=== PATIENT | male | born 1955 | race Caucasian/White ===

== ENCOUNTER 2024-03-02 06:36 | Observation (INO) ==
[~2024-03-02 06:36] MED LIST: Metoclopramide 5 MG/ML VIAL (10 mg) IV PRN; NS 0.45% 1000 ml BAG 1,000 ML IV SCH; Naloxone 0.4 mg VIAL 0.4 mg/ml 1 ml VIAL IV PRN; fentaNYL 100 mcg/2 ml 50 MCG/ML VIAL IV PRN
[2024-03-02] MEDS ORDERED: Scopolamine 1 mg/72hr PATCH ONE (06:52)
[2024-03-02] MEDS ORDERED: ceFAZolin 2 GM PREMIX 2 GM/50 ML BAG ONE (06:53)
[2024-03-02] MEDS ORDERED: Tranexamic Acid 1 GM/100ML BAG 2,000 MG/200 ML BAG IV ONE (06:53)
[2024-03-02 07:15] LABS: Rapid COVID-19 Molecular Undetected (Undetected)
[2024-03-02] MEDS: Buffered Lidocaine 1% SYRIN 1 ml INTRADERM ONE (07:22)
[2024-03-02] MEDS: Scopolamine 1 mg/72hr PATCH TRANSDERM ONE (07:23)
[2024-03-02] MEDS: Lactated Ringers 1000 ml BAG 1,000 ML IV SCH ×2 (07:23→17:39)
[2024-03-02 07:41] LABS: Activated Partial Thrombo Time 27.4 seconds (26.0-38.0); INR 1.05 (0.85-1.14)
[2024-03-02] MEDS ORDERED: ROPIVACAINE 5 MG/ML 30 ML BTL (0.5%) ONE (09:13)
[2024-03-02] MEDS ORDERED: Lidocaine 2% PF 5 ML VIAL ONE (09:14)
[2024-03-02] MEDS ORDERED: Midazolam 2 mg/2 ml VIAL 1 mg/ml 2 ml VIAL (2 mg) ONE ×2 (09:15→11:09)
[2024-03-02] MEDS ORDERED: Vancomycin 1,000 MG VIAL ONE ×2 (10:05→10:06)
[2024-03-02] MEDS ORDERED: Lidocaine 1% w EPI 1:200,000 SDV 30 ML VIAL ONE (10:05)
[2024-03-02] MEDS ORDERED: Bupivacaine 0.5% SDV PF 30ML VIAL ONE (10:37)
[2024-03-02] MEDS ORDERED: Propofol 10 MG/ML 20 ML BTL ONE ×2 (10:55→13:09)
[2024-03-02] MEDS ORDERED: Ondansetron 4 mg VIAL 2 MG/ML 2 ml VIAL IV PRN (12:00)
[2024-03-02] MEDS ORDERED: Lactulose 30 ml UDC PO PRN (12:00)
[2024-03-02] MEDS ORDERED: Magnesium Hydroxide LIQ 30 ML UDC PO PRN (12:00)
[2024-03-02] MEDS ORDERED: Morphine 2 MG/ML SYRINGE IV PRN (12:00)
[2024-03-02] MEDS ORDERED: Calcium Carb (TUMS) 500 mg CHEW TAB PO PRN (12:00)
[2024-03-02] MEDS ORDERED: Ondansetron ODT 4 mg TAB 4 MG TAB PO PRN (12:00)
[2024-03-02] MEDS ORDERED: Dexamethasone IV 4 MG/ML VIAL 1 ml VIAL ONE (12:49)
[2024-03-02] MEDS ORDERED: Ondansetron 4 mg VIAL 2 MG/ML 2 ml VIAL ONE (14:51)
[2024-03-02] MEDS ORDERED: Acetaminophen IV 1 GM/100ML 1,000 MG/100 ML BAG IV ONE (14:51)
[2024-03-02] MEDS: Acetaminophen IV 1 GM/100ML 1,000 MG/100 ML BAG IV ONE (14:56)
[2024-03-02] MEDS: Ondansetron 4 mg VIAL 2 MG/ML 2 ml VIAL IV PRN (14:57)
[2024-03-02] MEDS: ceFAZolin 2 GM PREMIX 2 GM/50 ML BAG IV SCH (19:32)
[2024-03-02] MEDS: Magnesium Hydroxide LIQ 30 ML UDC PO SCH (19:34)
[2024-03-03 06:57] LABS: Hematocrit 39.5 % (38-53); Hemoglobin 13.7 g/dL (13.2-16.3); Mean Platelet Volume 9.7 fL (7.5-11.2); Platelet Count 129 10^3/uL (150-450)
[2024-03-03 07:18] LABS: Calcium 9.2 mg/dL (8.6-10.3); Creatinine, Serum 0.93 mg/dL (0.67-1.17); Potassium 4.5 mmol/L (3.5-5.0); eGFR CKD-EPI 89.4 (>60)
[2024-03-03] MEDS: Vitamin THERAPEUTIC TAB PO SCH (09:12)
[2024-03-03 10:36] VITALS: BP 119/82
[2024-03-03] MEDS: Iohexol 350 (CONTRAST) 500 ML MDV IV ONE (11:12)
== END 2024-03-03 14:09 | disposition home or self-care (01) ==
LOC: OR 06:36 → SSU 06:36
PROVIDERS: ADMIT Orthopaedic Surgery; ATTEND Orthopaedic Surgery